=== PATIENT | male | born 1990 | race Caucasian/White ===

== ENCOUNTER 2018-03-23 10:00 | Outpatient (RCR) | payer BC ==
[2018-03-19 16:13] VITALS: BP 116/64; PULSE 72; TEMP 98.1
[2018-03-20 13:14] VITALS: BP 131/60; PULSE 78; TEMP 98
[2018-03-21 11:59] VITALS: BP 108/56; PULSE 87; TEMP 98
[2018-03-22 09:50] VITALS: BP 122/69; PULSE 64; TEMP 97.8
[~2018-03-23] VITALS: Ht 177.8 cm; Wt 72.0 kg
[~2018-03-23 10:00] MED LIST: MULTI VITAMINS1 TAB PO
[2018-03-23 10:09] VITALS: BP 142/75; PULSE 72; TEMP 98
== END 2018-03-23 11:40 | disposition home or self-care (01) ==
LOC: EUO 10:00
DX: G35 Multiple sclerosis (principal)
CPT/HCPCS: J2930; J7050